=== PATIENT | female | born 1975 | race Caucasian/White ===

== ENCOUNTER 2020-03-23 09:38 | Day surgery (SDC) | payer OTHER ==
[2020-03-22 11:20] LABS: CARBON DIOXIDE,CO2 25.6 mmol/L (21.0-32.0); POTASSIUM,K 4.3 mmol/L (3.5-5.1)
[~2020-03-23 09:38] MED LIST: Fluorescein 5 ML Vial ONE; Glycopyrrolate 0.2 MG/ML SDV ONE; Lactated Ringers 1,000 ML IV SCH; Lidocaine 2% 5 ML SDV ONE; Midazolam 1 MG/ML 2 ML SDV ONE; Ondansetron 4 MG/2 ML SDV ONE; Propofol 200 MG/20 ML SDV ONE; Sodium Chloride 0.9% 10 ML SDV IV PRN; Sodium Chloride 0.9% 10 ML Syringe FLUSH PRN; Sodium Chloride 0.9% 2.5 ML Syringe FLUSH PRN; ceFAZolin 2 GM in Premix Bag 1 BAG IV ONE; fentaNYL 250 MCG/5 ML SDV ONE
[2020-03-23] MEDS ORDERED: Scopolamine 1.5 MG Transdermal Patch TRDERM PRN (10:46)
--- NOTE | 2020-03-23 10:47 | PCM.PREANE ---
Preanesthetic Assessment - Anesthesia/Transfusion/Family Hx Anesthesia History: Prior Anesthesia Without Reaction Family History of Anesthesia Reaction: No Transfusion History: No Prior Transfusion(s) Intubation History: Unknown - Review of Systems General: No Symptoms Pulmonary: No Symptoms Cardiovascular: No Symptoms Gastrointestinal: No Symptoms Neurological: No Symptoms Other: Reports: None - Physical Assessment NPO Status Date: 03/22/20 NPO Status Time: 23:00 Vital Signs: Last Vital Signs Temp 35.9 C L 03/23/20 09:45 Pulse 91 03/23/20 09:45 Resp 16 03/23/20 09:45 BP 151/89 H 03/23/20 09:45 Pulse Ox 97 03/23/20 09:45 Height: 5 ft 4 in Weight: 92.079 kg ASA Class: 2 Mental Status: Alert & Oriented x3 Airway Class: Mallampati = 2 Dentition: Reports: Normal Dentition Thyro-Mental Finger Breadths: 3 Mouth Opening Finger Breadths: 2 (small mouth) ROM/Head Extension: Full Lungs: Clear to Auscultation, Normal Respiratory Effort Cardiovascular: Regular Rate, Regular Rhythm - Lab Values: Laboratory Last Values WBC 4.66 K/uL (4.0-11.0) 03/22/20 10:33 RBC 4.81 M/uL (4.30-5.90) 03/22/20 10:33 Hgb 12.9 g/dL (12.0-16.0) 03/22/20 10:33 Hct 39.6 % (36.0-46.0) 03/22/20 10:33 MCV 82.3 fL (80.0-98.0) 03/22/20 10:33 MCH 26.8 pg (27.0-32.0) L 03/22/20 10:33 MCHC 32.6 g/dL (31.0-37.0) 03/22/20 10:33 RDW Std Deviation 46.1 fl (28.0-62.0) 03/22/20 10:33 RDW Coeff of Abdelrahman 15 % (11.0-15.0) 03/22/20 10:33 Plt Count 305 K/uL (150-400) 03/22/20 10:33 MPV 10.50 fL (7.40-12.00) 03/22/20 10:33 Nucleated RBC % 0.0 /100WBC 03/22/20 10:33 Nucleated RBCs # 0 K/uL 03/22/20 10:33 Sodium 137 mmol/L (136-145) 03/22/20 10:33 Potassium 4.3 mmol/L (3.5-5.1) 03/22/20 10:33 Chloride 102 mmol/L (98-107) 03/22/20 10:33 Carbon Dioxide 25.6 mmol/L (21.0-32.0) 03/22/20 10:33 BUN 13 mg/dL (7.0-18.0) 03/22/20 10:33 Creatinine 1.0 mg/dL (0.6-1.0) 03/22/20 10:33 Est Cr Clr Drug Dosing 61.35 mL/min 03/22/20 10:33 Estimated GFR (MDRD) 60.0 ml/min 03/22/20 10:33 Glucose 110 mg/dL (74-106) H 03/22/20 10:33 Calcium 8.6 mg/dL (8.5-10.1) 03/22/20 10:33 HCG, Qual NEGATIVE (NEG) 03/22/20 10:33 Blood Type A POSITIVE 03/22/20 10:33 Antibody Screen NEGATIVE 03/22/20 10:33 - Allergies Allergies/Adverse Reactions: Allergies Allergy/AdvReac Type Severity Reaction Status Date / Time No Known Allergies Allergy Verified 03/17/20 12:16 - Blood Blood Available: No - Anesthesia Plan Pre-Op Medication Ordered: None - Acknowledgements Anesthesia Type Planned: General Anesthesia Pt an Appropriate Candidate for the Planned Anesthesia: Yes Alternatives and Risks of Anesthesia Discussed w Pt/Guardian: Yes Pt/Guardian Understands and Agrees with Anesthesia Plan: Yes PreAnesthesia Questionnaire HEENT History: Reports: Other (See Below) Other HEENT History: wears glasses Cardiovascular History: Reports: None Respiratory History: Reports: None Gastrointestinal History: Reports: None Genitourinary History: Reports: None [employer] 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: Musculoskeletal History: Reports: None Neurological History: Reports: None Psychiatric History: Reports: Depression Other Psychiatric History: depression in the past Endocrine/Metabolic History: Reports: Obesity/BMI 30+ (BMI 34.8) Hematologic History: Reports: None Immunologic History: Reports: None Oncologic (Cancer) History: Reports: None Dermatologic History: Reports: Other (See Below) Other Dermatologic History: dry skin - Past Surgical History Head Surgeries/Procedures: Reports: None HEENT Surgical History: Reports: None Cardiovascular Surgical History: Reports: None Respiratory Surgical History: Reports: None GI Surgical History: Reports: None Female Surgical History: Reports: Other (See Below) Other Female Surgeries/Procedures: laparoscopy with ovarian cystectomy Endocrine Surgical History: Reports: None Neurological Surgical History: Reports: None Musculoskeletal Surgical History: Reports: None Oncologic Surgical History: Reports: None Dermatological Surgical History: Reports: None - SUBSTANCE USE Smoking Status *Q: Never Smoker - HOME MEDS Home Medications: Home Meds Ibuprofen [Advil] 1 tab PO ASDIRECTED PRN 03/17/20 [History] - CURRENT (IN HOUSE) MEDS Current Meds: Current Medications Lactated Ringer's (Ringers, Lactated) 1,000 mls @ 500 mls/hr IV BOLUS YENNIFER Last Admin: 03/23/20 10:26 Dose: 500 mls/hr Documented by: Sodium Chloride (Saline Flush) 10 ml FLUSH ASDIRECTED PRN PRN Reason: Keep Vein Open Sodium Chloride (Saline Flush) 2.5 ml FLUSH ASDIRECTED PRN PRN Reason: Keep Vein Open Sodium Chloride (Normal Saline) 10 ml IV ASDIRECTED PRN PRN Reason: IV Use Discontinued Medications Fentanyl (Sublimaze) Confirm Administered Dose 250 mcg .ROUTE .STK-MED ONE Stop: 03/23/20 07:16 Fluorescein Sodium (Ak-Fluor) Confirm Administered Dose 5 ml .ROUTE .STK-MED ONE Stop: 03/23/20 07:32 Glycopyrrolate (Robinul) Confirm Administered Dose 0.2 mg .ROUTE .STK-MED ONE Stop: 03/23/20 07:18 Cefazolin Sodium/Dextrose 2 gm (/ Premix) 50 mls @ 100 mls/hr IV ONETIME ONE Stop: 03/22/20 09:58 Lidocaine (Xylocaine-Mpf 2%) Confirm Administered Dose 5 ml .ROUTE .STK-MED ONE Stop: 03/23/20 07:18 Midazolam HCl (Versed 1 Mg/Ml) Confirm Administered Dose 2 mg .ROUTE .STK-MED ONE Stop: 03/23/20 07:16 Ondansetron HCl (Zofran) Confirm Administered Dose 4 mg .ROUTE .STK-MED ONE Stop: 03/23/20 07:18 Propofol (Diprivan 20 Ml) Confirm Administered Dose 200 mg .ROUTE .STK-MED ONE Stop: 03/23/20 07:16
[2020-03-23] MEDS ORDERED: ceFAZolin/Dextrose,Iso-Osmotic 2 GM/50 ML Duplex Bag IV ONE (11:18)
[2020-03-23] MEDS ORDERED: Succinylcholine/Sod PF 100 MG/5 ML SYRINGE IV ONE (11:21)
[2020-03-23] MEDS ORDERED: Furosemide 40 MG/4 ML VIAL ONE (12:15)
[2020-03-23] MEDS ORDERED: HYDROmorphone 2 MG/ML Syringe ONE (12:18)
[2020-03-23] MEDS ORDERED: fentaNYL 100 MCG/2 ML SDV ONE (12:26)
[2020-03-23] MEDS ORDERED: Labetalol 100 MG/20 ML MDV ONE (12:35)
[2020-03-23] MEDS ORDERED: Glycopyrrolate 0.2 MG/ML SDV ONE (13:22)
[2020-03-23] MEDS ORDERED: Acetaminophen 1,000 MG in Premix Bag 1 BAG IV PRN (13:23)
[2020-03-23] MEDS ORDERED: fentaNYL 100 MCG/2 ML SDV IVPUSH PRN (13:23)
[2020-03-23] MEDS ORDERED: Octyl 2-Cyanoacrylate 1 Tube ONE (13:23)
[2020-03-23] MEDS ORDERED: Naloxone 0.4 MG/ML Syringe ONE (13:50)
[2020-03-23] MEDS ORDERED: Ketorolac 30 MG/ML SDV IVPUSH ONE (14:06)
[2020-03-23] MEDS ORDERED: Promethazine 25 MG/ML SDV IM PRN (14:06)
[2020-03-23] MEDS ORDERED: Acetaminophen/oxyCODONE 325-5 MG Tab PO PRN (14:06)
--- NOTE | 2020-03-23 14:09 | PCM.OPNOTE ---
- General Post-Op/Procedure Note Date of Surgery/Procedure: 03/23/20 Operative Procedure(s): TLH,BSO and custoscopy Post-Op Diagnosis: Same Anesthesia Technique: General ET Tube Primary Surgeon: Favio Vargas EBL in mLs: 200 Complications: None Condition: Good Free Text/Narrative:: Intake & Output 03/22/20 03/23/20 03/23/20 22:59 06:59 14:59 Output Total 400 Balance -400
--- NOTE | 2020-03-23 15:13 | PCM.POSTAN ---
POST ANESTHESIA ASSESSMENT - MENTAL STATUS Mental Status: Somnolent - VITAL SIGNS Vital Signs: Last Vital Signs Temp 36.8 C 03/23/20 13:43 Pulse 61 03/23/20 15:03 Resp 8 L 03/23/20 15:03 BP 121/73 03/23/20 15:03 Pulse Ox 93 L 03/23/20 15:03 - RESPIRATORY Respiratory Status: Respiratory Rate WNL Free Text/Narrative:: Will monitor EtCO2 and SaO2 on floor - CARDIOVASCULAR CV Status: Pulse Rate WNL - GASTROINTESTINAL GI Status: No Symptoms - PAIN Pain Score: 0 - POST OP HYDRATION Hydration Status: Adequate & Stable (Stable. Will monitor on floor.)
--- NOTE | 2020-03-23 15:38 | OR ---
SURGEON: Favio Vargas MD DATE OF PROCEDURE: 03/23/2020 PREOPERATIVE DIAGNOSES: Menometrorrhagia, fibroid uterus. POSTOPERATIVE DIAGNOSES: Menometrorrhagia, fibroid uterus. OPERATIONS PERFORMED: Total laparoscopic hysterectomy, laparoscopic bilateral salpingo-oophorectomy, and cystoscopy. PRIMARY SURGEON: Favio Vargas MD ENERGY CONSERVATION TECHNICIAN: OR tech. ANESTHESIA: General endotracheal intubation, Mr. Roshan Thomas and Dr. Frausto. ESTIMATED BLOOD LOSS: 200 mL. COMPLICATIONS: None. FINDINGS: Uterus about 12-week size. The rest of the pelvis finding essentially is normal. INDICATIONS FOR SURGERY: Osteen referred to the admit note. PROCEDURE IN DETAIL: The patient was brought to the OR, properly identified, and prepped and draped in sterile fashion as usual. Avalos catheter placed in the bladder for drainage and then colpotomizer and uterine manipulator placed in the uterus for manipulation. The operation shifted abdominally. Stab wound done beneath the umbilicus. A Veress needle was placed in the peritoneal cavity and that cavity insufflated with 3.5 carbon dioxide and then the utilizing the Visiport technique 5 mm trocar was entered infraumbilically. Once we were in the peritoneal cavity and everything was okay, 10/12 trocar placed in the left iliac fossa and 5 mm trocar in the right iliac fossa. The operation started by identifying the landmark of the anatomy and then the superior pedicle coagulated and transected from both sides with the Navneet Harmonic scalpel and then the round ligament coagulated and transected in the same manner and then the anterior leaf of the broad ligament dissected downward medially. A uterine vessel identified and this vessel was coagulated and transected with the Navneet Harmonic scalpel. There was an area of bleeding noticed at the area near where the uterine vessel coagulated. A hemoclip was applied to this area of bleeding and the bleeding stopped. Next, the vaginal cuff was entered anteriorly with the Harmonic scalpel and the vaginal cuff incised in a circular manner detaching the cervix from its attachment to the vagina. Cervix and uterus and both tube and ovary removed vaginally and pneumoperitoneum re-established by placing vaginal pack in the vagina. Sterile irrigation of the pelvis was done and it was noted at the right side that an area near the uterine artery was oozing and that was picked individually and hemoclip applied and the bleeding stopped. Once was that accomplished, the vaginal cuff closed laparoscopically with 2-0 PDS interrupted. While we were doing that, we asked Anesthesia personnel to give the patient fluorescein. After the vaginal cuff was closed and inspection of all the pedicle making sure there was no oozing, no bleeding, the abdomen was deflated. The Avalos catheter was removed. Cystoscopy was performed. The bladder was intact. Both ureteric orifices seen with the dye coming from both of them, thus patency of both ureters verified. Satisfied with these findings, the instrument and hardware retrieved from the abdomen and the vagina and the multiple laparoscopic incisions closed in layers. The patient tolerated the procedure well, went to recovery room in stable general condition. JARRELL / KRISTIN /[id number]
[2020-03-23] MEDS: Ondansetron 4 MG/2 ML SDV IVPUSH PRN ×2 (16:01→22:10)
[2020-03-23] MEDS: Morphine 4 MG/ML Syringe IVPUSH PRN ×2 (16:33→21:09)
[2020-03-23] MEDS: Acetaminophen/oxyCODONE 325-5 MG Tab PO PRN (23:15)
[2020-03-24] MEDS: Acetaminophen/oxyCODONE 325-5 MG Tab PO PRN ×2 (04:07→08:09)
[2020-03-24 06:38] LABS: CARBON DIOXIDE,CO2 26.3 mmol/L (21.0-32.0); POTASSIUM,K 4.3 mmol/L (3.5-5.1)
--- NOTE | 2020-03-24 07:17 | PCM48HPAN ---
Post Anesthesia Note - EVALUATION WITHIN 48HRS OF ANESTHETIC Vital Signs in Normal Range: Yes Patient Participated in Evaluation: Yes Respiratory Function Stable: Yes Airway Patent: Yes Cardiovascular Function Stable: Yes Hydration Status Stable: Yes Pain Control Satisfactory: Yes (Some soreness) Nausea and Vomiting Control Satisfactory: Yes Mental Status Recovered: Yes Vital Signs: Last Vital Signs Temp 36.3 C 03/24/20 04:20 Pulse 79 03/24/20 04:20 Resp 15 03/24/20 04:20 BP 100/62 03/24/20 04:20 Pulse Ox 96 03/24/20 04:20 - COMMENTS/OBSERVATIONS Free Text/Narrative:: Doing well. No problems noted.
[2020-03-24] MEDS: Ketorolac 30 MG/ML SDV IVPUSH PRN ×2 (08:41→14:37)
--- NOTE | 2020-03-24 08:50 | PCM.SURGPN ---
- General Info Date of Service: 03/24/20 POD#: 1 Functional Status: Reports: Pain Controlled - Review of Systems General: Reports: No Symptoms HEENT: Reports: No Symptoms Pulmonary: Reports: No Symptoms Cardiovascular: Reports: No Symptoms Gastrointestinal: Reports: No Symptoms Genitourinary: Reports: No Symptoms Musculoskeletal: Reports: No Symptoms Skin: Reports: No Symptoms Neurological: Reports: No Symptoms Psychiatric: Reports: No Symptoms - Patient Data Vitals - Most Recent: Last Vital Signs Temp 36.4 C 03/24/20 08:00 Pulse 92 03/24/20 08:00 Resp 16 03/24/20 08:00 BP 115/62 03/24/20 08:00 Pulse Ox 95 03/24/20 08:00 Weight - Most Recent: 92.079 kg I&O - Last 24 Hours: Intake & Output 03/23/20 03/24/20 03/24/20 22:59 06:59 14:59 Intake Total 2560 350 Output Total 0 460 Balance 2560 -110 Lab Results Last 24 Hrs: Laboratory Results - last 24 hr 03/24/20 03/24/20 Range/Units 06:00 06:00 WBC 11.76 H (4.0-11.0) K/uL RBC 4.17 L (4.30-5.90) M/uL Hgb 10.9 L (12.0-16.0) g/dL Hct 34.2 L (36.0-46.0) % MCV 82.0 (80.0-98.0) fL MCH 26.1 L (27.0-32.0) pg MCHC 31.9 (31.0-37.0) g/dL RDW Std Deviation 45.9 (28.0-62.0) fl RDW Coeff of Abdelrahman 15 (11.0-15.0) % Plt Count 260 (150-400) K/uL MPV 10.30 (7.40-12.00) fL Neut % (Auto) 85.8 H (48.0-80.0) % Lymph % (Auto) 7.6 L (16.0-40.0) % [place] % (Auto) 6.6 (0.0-15.0) % Eos % (Auto) 0.0 (0.0-7.0) % Baso % (Auto) 0.0 (0.0-1.5) % Neut # (Auto) 10.1 H (1.4-5.7) K/uL Lymph # (Auto) 0.9 (0.6-2.4) K/uL [place] # (Auto) 0.8 (0.0-0.8) K/uL Eos # (Auto) 0.0 (0.0-0.7) K/uL Baso # (Auto) 0.0 (0.0-0.1) K/uL Nucleated RBC % 0.0 /100WBC Nucleated RBCs # 0 K/uL Sodium 138 (136-145) mmol/L Potassium 4.3 (3.5-5.1) mmol/L Chloride 103 (98-107) mmol/L Carbon Dioxide 26.3 (21.0-32.0) mmol/L BUN 13 (7.0-18.0) mg/dL Creatinine 1.1 H (0.6-1.0) mg/dL Est Cr Clr Drug Dosing 55.77 mL/min Estimated GFR (MDRD) 53.7 ml/min Glucose 147 H (74-106) mg/dL Calcium 8.1 L (8.5-10.1) mg/dL Med Orders - Current: Current Medications Lactated Ringer's (Ringers, Lactated) 1,000 mls @ 500 mls/hr IV BOLUS YENNIFER Last Admin: 03/23/20 10:26 Dose: 500 mls/hr Documented by: Ketorolac Tromethamine (Toradol) 30 mg IVPUSH Q6H PRN PRN Reason: Pain (severe 7-10) Stop: 03/28/20 14:06 Last Admin: 03/24/20 08:41 Dose: 30 mg Documented by: Morphine Sulfate (Morphine) 4 mg IVPUSH Q2H PRN PRN Reason: Pain (severe 7-10) Last Admin: 03/23/20 21:09 Dose: 4 mg Documented by: Ondansetron HCl (Zofran) 4 mg IVPUSH Q6H PRN PRN Reason: Nausea/Vomiting Last Admin: 03/23/20 22:10 Dose: 4 mg Documented by: Oxycodone/Acetaminophen (Percocet 325-5 Mg) 1 tab PO Q4H PRN PRN Reason: Pain (moderate 4-6) Oxycodone/Acetaminophen (Percocet 325-5 Mg) 2 tab PO Q4H PRN PRN Reason: Pain (moderate 4-6) Last Admin: 03/24/20 08:09 Dose: 2 tab Documented by: Promethazine HCl (Phenergan) 25 mg IM Q6H PRN PRN Reason: Nausea/Vomiting Scopolamine (Transderm-Scop) 1.5 mg TRDERM Q72H PRN PRN Reason: Nausea Last Admin: 03/23/20 10:52 Dose: 1.5 mg Documented by: Sodium Chloride (Saline Flush) 10 ml FLUSH ASDIRECTED PRN PRN Reason: Keep Vein Open Sodium Chloride (Saline Flush) 2.5 ml FLUSH ASDIRECTED PRN PRN Reason: Keep Vein Open Sodium Chloride (Normal Saline) 10 ml IV ASDIRECTED PRN PRN Reason: IV Use Discontinued Medications Cefazolin Sodium/Dextrose (Ancef) Confirm Administered Dose 2 gm IV .STK-MED ONE Stop: 03/23/20 11:19 Fentanyl (Sublimaze) Confirm Administered Dose 250 mcg .ROUTE .STK-MED ONE Stop: 03/23/20 07:16 Fentanyl (Sublimaze) Confirm Administered Dose 100 mcg .ROUTE .STK-MED ONE Stop: 03/23/20 12:27 Fentanyl (Sublimaze) 50 mcg IVPUSH Q5M PRN PRN Reason: Pain Fluorescein Sodium (Ak-Fluor) Confirm Administered Dose 5 ml .ROUTE .STK-MED ONE Stop: 03/23/20 07:32 Furosemide (Lasix) Confirm Administered Dose 40 mg .ROUTE .STK-MED ONE Stop: 03/23/20 12:16 Glycopyrrolate (Robinul) Confirm Administered Dose 0.2 mg .ROUTE .STK-MED ONE Stop: 03/23/20 07:18 Glycopyrrolate (Robinul) Confirm Administered Dose 0.6 mg .ROUTE .STK-MED ONE Stop: 03/23/20 13:23 Hydromorphone HCl (Dilaudid) Confirm Administered Dose 2 mg .ROUTE .STK-MED ONE Stop: 03/23/20 12:19 Cefazolin Sodium/Dextrose 2 gm (/ Premix) 50 mls @ 100 mls/hr IV ONETIME ONE Stop: 03/22/20 09:58 Last Admin: 03/23/20 22:41 Dose: Not Given Documented by: Acetaminophen 1,000 mg/ Premix 100 mls @ 400 mls/hr IV Q6H PRN PRN Reason: Pain Ketorolac Tromethamine (Toradol) 30 mg IVPUSH ONETIME ONE Stop: 03/23/20 14:07 Last Admin: 03/23/20 16:25 Dose: 30 mg Documented by: Labetalol HCl (Normodyne) Confirm Administered Dose 100 mg .ROUTE .STK-MED ONE Stop: 03/23/20 12:36 Lidocaine (Xylocaine-Mpf 2%) Confirm Administered Dose 5 ml .ROUTE .STK-MED ONE Stop: 03/23/20 07:18 Midazolam HCl (Versed 1 Mg/Ml) Confirm Administered Dose 2 mg .ROUTE .STK-MED ONE Stop: 03/23/20 07:16 Naloxone HCl (Narcan) Confirm Administered Dose 0.4 mg .ROUTE .STK-MED ONE Stop: 03/23/20 13:51 Octyl Cyanoacrylate (Dermabond Advance) Confirm Administered Dose 1 applic .ROUTE .STK-MED ONE Stop: 03/23/20 13:24 Ondansetron HCl (Zofran) Confirm Administered Dose 4 mg .ROUTE .STK-MED ONE Stop: 03/23/20 07:18 Propofol (Diprivan 20 Ml) Confirm Administered Dose 200 mg .ROUTE .STK-MED ONE Stop: 03/23/20 07:16 Vecuronium [place] (Vecuronium) Confirm Administered Dose 10 mg .ROUTE .STK-MED ONE Stop: 03/23/20 11:23 - Exam Wound/Incisions: Healing Well General: Alert, Oriented HEENT: Pupils Equal Neck: Supple Lungs: Clear to Auscultation, Normal Respiratory Effort Cardiovascular: Regular Rate, Regular Rhythm GI/Abdominal Exam: Normal Bowel Sounds, Soft, Non-Tender, No Organomegaly, No Distention, No Abnormal Bruit, No Mass, Pelvis Stable Extremities: Normal Inspection, Normal Range of Motion, Non-Tender, No Pedal Edema, Normal Capillary Refill Skin: Warm, Dry, Intact Neurological: No New Focal Deficit Psy/Mental Status: Alert, Normal Affect, Normal Mood Sepsis Event Note - Evaluation Sepsis Screening Result: No Definite Risk - Focused Exam Vital Signs: Vital Signs Temp Pulse Resp BP Pulse Ox Pulse Ox 03/24/20 08:00 36.4 C 92 16 115/62 95 03/24/20 04:20 36.3 C 79 15 100/62 96 03/24/20 04:00 98 03/24/20 00:00 36.0 C L 78 14 115/68 96 97 Date Exam was Performed: 03/24/20 Time Exam was Performed: 08:46 - Problem List Review Problem List Initiated/Reviewed/Updated: Yes - My Orders Last 24 Hours: Active Orders 24 hr Category Date Time Status Patient Status [ADT] Routine ADT 03/23/20 14:06 Active Antiembolic Devices [RC] Q12H Care 03/23/20 14:07 Active ETCO2 [RT End Tidal CO2 Monitoring] [RC] ASDIRECTED Care 03/23/20 14:57 Active Notify Provider Vital Signs [RC] ASDIRECTED Care 03/23/20 14:06 Active Overnight Pulse Oximetry [RC] Click to Edit Care 03/23/20 14:57 Active Oxygen Therapy [RC] Q4H Care 03/23/20 14:06 Active RT Incentive Spirometry [RC] Q2HWA Care 03/23/20 14:06 Active Up With Assistance [RC] Q12H Care 03/23/20 14:06 Active Up ad [place] [RC] PER UNIT ROUTINE Care 03/23/20 14:06 Active Vital Signs [RC] PER UNIT ROUTINE Care 03/23/20 14:06 Active Regular Diet [DIET] Diet 03/23/20 Dinner Active Acetaminophen/oxyCODONE [Percocet 325-5 MG] Med 03/23/20 14:06 Active 1 tab PO Q4H PRN Acetaminophen/oxyCODONE [Percocet 325-5 MG] Med 03/23/20 14:06 Active 2 tab PO Q4H PRN Ketorolac [Toradol] Med 03/23/20 14:06 Active 30 mg IVPUSH Q6H PRN Morphine Med 03/23/20 14:06 Active 4 mg IVPUSH Q2H PRN Ondansetron [Zofran] Med 03/23/20 14:06 Active 4 mg IVPUSH Q6H PRN Promethazine [Phenergan] Med 03/23/20 14:06 Active 25 mg IM Q6H PRN Scopolamine [Transderm-Scop] Med 03/23/20 10:46 Active 1.5 mg TRDERM Q72H PRN Peripheral IV Discontinue [OM.PC] Routine Oth 03/23/20 14:06 Ordered Pulse Oximetry Continuous Monitoring [OM.PC] Routine Oth 03/23/20 14:57 Ordered Sequential Compression Device [OM.PC] Per Unit Routine Oth 03/23/20 14:06 Ordered Resuscitation Status Routine Resus Stat 03/23/20 14:06 Ordered Medication Orders Lactated Ringer's (Ringers, Lactated) 1,000 mls @ 500 mls/hr IV BOLUS YENNIFER Last Admin: 03/23/20 10:26 Dose: 500 mls/hr Documented by: MAYO Ketorolac Tromethamine (Toradol) 30 mg IVPUSH Q6H PRN PRN Reason: Pain (severe 7-10) Stop: 03/28/20 14:06 Last Admin: 03/24/20 08:41 Dose: 30 mg Documented by: GREGORIA Morphine Sulfate (Morphine) 4 mg IVPUSH Q2H PRN PRN Reason: Pain (severe 7-10) Last Admin: 03/23/20 21:09 Dose: 4 mg Documented by: Admin: 03/23/20 16:33 Dose: 4 mg Documented by: NATTY Ondansetron HCl (Zofran) 4 mg IVPUSH Q6H PRN PRN Reason: Nausea/Vomiting Last Admin: 03/23/20 22:10 Dose: 4 mg Documented by: Admin: 03/23/20 16:01 Dose: 4 mg Documented by: NATTY Oxycodone/Acetaminophen (Percocet 325-5 Mg) 1 tab PO Q4H PRN PRN Reason: Pain (moderate 4-6) Oxycodone/Acetaminophen (Percocet 325-5 Mg) 2 tab PO Q4H PRN PRN Reason: Pain (moderate 4-6) Last Admin: 03/24/20 08:09 Dose: 2 tab Documented by: ALIRIO Cosigned by: YASMINE Admin: 03/24/20 04:07 Dose: 2 tab Documented by: Admin: 03/23/20 23:15 Dose: 2 tab Documented by: ZABRINA Promethazine HCl (Phenergan) 25 mg IM Q6H PRN PRN Reason: Nausea/Vomiting Scopolamine (Transderm-Scop) 1.5 mg TRDERM Q72H PRN PRN Reason: Nausea Last Admin: 03/23/20 10:52 Dose: 1.5 mg Documented by: MAYO Sodium Chloride (Saline Flush) 10 ml FLUSH ASDIRECTED PRN PRN Reason: Keep Vein Open Sodium Chloride (Saline Flush) 2.5 ml FLUSH ASDIRECTED PRN PRN Reason: Keep Vein Open Sodium Chloride (Normal Saline) 10 ml IV ASDIRECTED PRN PRN Reason: IV Use - Assessment Assessment (Free Text/Narrative):: Status post total laparoscopic hysterectomy with laparoscopic bilateral salpingo-oophorectomy and cystoscopy yesterday the patient is today is doing well her hematocrit stable there is no vaginal bleeding she is on regular diet tolerated very well she is voiding without any problem and she is moving around the bed. The patient advised to attempt to take a shower with the help of her nursing staff. - Plan Plan (Free Text/Narrative):: The patient will be discharge home today post hysterectomy instruction is given to the patient instruction how to take care of her laparoscopic incision is also given to her. There is no restriction on her diet prescription for Narco 5/325 for postoperative pain is given to her to the patient is already have an appointment to see me in the office in one week
== END 2020-03-24 14:47 | disposition home or self-care (01) ==
LOC: MW.SDS 09:38 → MW.MS 14:14 → MW.SDS 03-24 14:47
PROVIDERS: ATTEND Obstetrics & Gynecology
DX: N72 Inflammatory disease of cervix uteri (principal); N85.2 Hypertrophy of uterus; N83.8 Other noninflammatory disorders of ovary, fallopian tube and broad ligament; N83.02 Follicular cyst of left ovary; N83.01 Follicular cyst of right ovary; E66.9 Obesity, unspecified; E61.1 Iron deficiency; Z68.34 Body mass index [BMI] 34.0-34.9, adult
CPT/HCPCS: 36415; 58571; 80048; 82962; 84703; 85025; 85027; 86850; 86900; 86901; A9270; J0690; J1170; J1885; J1940; J2001; J2250; J2270; J2405; J2704; J3010; J3490; J7120; 88307; J0330

== ENCOUNTER 2022-12-12 06:37 | Day surgery (SDC) | payer BC ==
[~2022-12-12 06:37] MED LIST changes: -Fluorescein 5 ML Vial ONE; -Glycopyrrolate 0.2 MG/ML SDV ONE; -Lidocaine 2% 5 ML SDV ONE; -Midazolam 1 MG/ML 2 ML SDV ONE; -Ondansetron 4 MG/2 ML SDV ONE; -Propofol 200 MG/20 ML SDV ONE; -Sodium Chloride 0.9% 10 ML SDV IV PRN; +Sodium Chloride 0.9% 20 ML SDV IV PRN; -ceFAZolin 2 GM in Premix Bag 1 BAG IV ONE; -fentaNYL 250 MCG/5 ML SDV ONE
[2022-12-12] MEDS ORDERED: Propofol 200 MG/20 ML SDV ONE (07:28)
== END 2022-12-12 09:15 | disposition home or self-care (01) ==
LOC: MW.SDS 06:37
PROVIDERS: ATTEND Surgery
DX: Z12.11 Encounter for screening for malignant neoplasm of colon (principal); D12.2 Benign neoplasm of ascending colon; K57.30 Diverticulosis of large intestine without perforation or abscess without bleeding; Z80.0 Family history of malignant neoplasm of digestive organs; Z90.710 Acquired absence of both cervix and uterus; Z79.84 Long term (current) use of oral hypoglycemic drugs; Z79.899 Other long term (current) drug therapy; Z91.013 Allergy to seafood; Z91.040 Latex allergy status
CPT/HCPCS: 45380; 82947; J2704; J7120; 00812

== ENCOUNTER 2023-10-09 07:28 | Day surgery (SDC) | payer BC ==
[2023-10-09] MEDS ORDERED: propofoL 50 ML ONE (08:28)
[2023-10-09] MEDS ORDERED: Dexamethasone 4 MG/ML 5 ML MDV ONE (08:40)
== END 2023-10-09 09:40 | disposition home or self-care (01) ==
LOC: MW.SDS 07:28
PROVIDERS: ATTEND Surgery
DX: K29.50 Unspecified chronic gastritis without bleeding (principal); B96.81 Helicobacter pylori [H. pylori] as the cause of diseases classified elsewhere; K21.9 Gastro-esophageal reflux disease without esophagitis; E11.9 Type 2 diabetes mellitus without complications; E66.9 Obesity, unspecified; Z68.35 Body mass index [BMI] 35.0-35.9, adult; Z79.84 Long term (current) use of oral hypoglycemic drugs; Z79.85 Long-term (current) use of injectable non-insulin antidiabetic drugs; Z79.899 Other long term (current) drug therapy; Z91.013 Allergy to seafood; Z91.040 Latex allergy status
CPT/HCPCS: 43239; J1100; J2704; J7120; 00731

== ENCOUNTER 2024-07-23 15:34 | Inpatient (IN) | payer BC ==
[2024-07-23] MEDS ORDERED: 50% Dextrose in Water 50 ML Syringe IVPUSH PRN (16:09)
[2024-07-23] MEDS ORDERED: Glucagon,Human Recombinant 1 MG Vial IM PRN (16:09)
[2024-07-23] MEDS ORDERED: Acetaminophen 500 MG Tab PO SCH (16:15)
[2024-07-23] MEDS ORDERED: diphenhydrAMINE 50 MG Cap PO PRN (16:15)
[2024-07-23] MEDS: Sodium Chloride 0.9% 1,000 ML IV ONE (16:48)
[2024-07-23] MEDS: Pantoprazole 40 MG Tab.CR PO SCH (16:52)
[2024-07-23] MEDS: diphenhydrAMINE 25 MG Cap PO SCH (16:52)
[2024-07-23 16:55] LABS: BASOPHILS ABSOLUTE AUTO 0.05 K/uL (0.00-0.20); BASOPHILS PERCENT AUTO 0.7 % (0.0-1.0); EOSINOPHILS ABSOLUTE AUTO 0.19 K/uL (0.00-0.45); EOSINOPHILS PERCENT AUTO 2.8 % (0.0-6.0); HEMOGLOBIN 15.2 g/dL (12.0-16.0); IMMATURE GRAN ABSOLUTE AUTO 0.01 K/uL (0.00-0.05); IMMATURE GRAN PERCENT AUTO 0.1 % (0.0-0.4); LYMPHOCYTES ABSOLUTE AUTO 2.01 K/uL (1.00-4.80); LYMPHOCYTES PERCENT AUTO 29.7 % (24.0-44.0); MEAN CORPUSCULAR HEMOGLOBIN 28.6 pg (28.0-32.0); MEAN CORPUSCULAR HGB CONC 34.5 g/dL (32.0-36.0); MEAN CORPUSCULAR VOLUME 82.7 fL (83.0-99.0); MEAN PLATELET VOLUME 10.3 fL (9.4-12.3); MONOCYTES ABSOLUTE AUTO 0.46 K/uL (0.00-0.80); MONOCYTES PERCENT AUTO 6.8 % (0.0-8.0); NEUTROPHILS ABSOLUTE AUTO 4.04 K/uL (1.80-7.70); NEUTROPHILS PERCENT AUTO 59.9 % (41.0-71.0); PLATELET COUNT,PLT 189 K/uL (150-400); RED BLOOD CELL COUNT 5.32 M/uL (4.10-5.30); WHITE BLOOD CELL COUNT,WBC 6.76 K/uL (3.9-11.3)
[2024-07-23] MEDS: Acetaminophen 325 MG Tab PO SCH (17:02)
[2024-07-23] MEDS: Insulin Aspart 100 Units/ML 3 ML Pen SUBCUT SCH (17:03)
[2024-07-23] MEDS: Enoxaparin 40 MG/0.4 ML Syringe SUBCUT SCH (17:03)
[2024-07-23 17:23] LABS: A/G RATIO 1.7 (0.9-1.6); ALBUMIN 4.2 g/dL (3.4-5.0); BILIRUBIN TOTAL 0.7 mg/dL (0.2-1.0); CALCIUM 9.4 mg/dL (8.5-10.1); CARBON DIOXIDE,CO2 26.6 mmol/L (21.0-32.0); EST CRCL DRUG DOSING (CG) 58.76 mL/min; POTASSIUM,K 3.9 mmol/L (3.5-5.1); PROTEIN TOTAL,TP 6.7 g/dL (6.4-8.2)
[2024-07-23 17:39] LABS: CORONAVIRUS COVID-19 NAA NEGATIVE (NEGATIVE); INFLUENZA A NAA NEGATIVE (NEGATIVE); INFLUENZA B NAA NEGATIVE (NEGATIVE); RESPIRATORY SYNCYTIAL VIR NAA NEGATIVE (NEGATIVE)
[2024-07-23] MEDS: IMMUNE GLOBULIN GAMMA IV SCH (18:44)
[2024-07-23 20:02] LABS: APPEARANCE,URINE CLEAR; BILIRUBIN,URINE NEGATIVE (NEGATIVE); COLOR,URINE YELLOW; GLUCOSE,URINE NEGATIVE (NEGATIVE); KETONES,URINE NEGATIVE (NEGATIVE); LEUKOCYTE ESTERASE,URINE NEGATIVE (NEGATIVE); NITRITE,URINE NEGATIVE (NEGATIVE); OCCULT BLOOD,URINE NEGATIVE (NEGATIVE); PROTEIN,URINE NEGATIVE (NEGATIVE); UROBILINOGEN,URINE 0.2 EU/dL (<2.0)
[2024-07-24 06:26] LABS: BASOPHILS ABSOLUTE AUTO 0.02 K/uL (0.00-0.20); BASOPHILS PERCENT AUTO 0.4 % (0.0-1.0); EOSINOPHILS ABSOLUTE AUTO 0.11 K/uL (0.00-0.45); EOSINOPHILS PERCENT AUTO 2.5 % (0.0-6.0); HEMATOCRIT 40.1 % (37.0-47.0); HEMOGLOBIN 13.7 g/dL (12.0-16.0); IMMATURE GRAN ABSOLUTE AUTO 0.01 K/uL (0.00-0.05); IMMATURE GRAN PERCENT AUTO 0.2 % (0.0-0.4); LYMPHOCYTES ABSOLUTE AUTO 0.98 K/uL (1.00-4.80); MEAN CORPUSCULAR HEMOGLOBIN 28.6 pg (28.0-32.0); MEAN CORPUSCULAR HGB CONC 34.2 g/dL (32.0-36.0); MEAN CORPUSCULAR VOLUME 83.7 fL (83.0-99.0); MONOCYTES ABSOLUTE AUTO 0.26 K/uL (0.00-0.80); MONOCYTES PERCENT AUTO 5.8 % (0.0-8.0); NEUTROPHILS ABSOLUTE AUTO 3.08 K/uL (1.80-7.70); NEUTROPHILS PERCENT AUTO 69.1 % (41.0-71.0); PLATELET COUNT,PLT 197 K/uL (150-400); RED BLOOD CELL COUNT 4.79 M/uL (4.10-5.30); WHITE BLOOD CELL COUNT,WBC 4.46 K/uL (3.9-11.3)
[2024-07-24 06:50] LABS: A/G RATIO 0.8 (0.9-1.6); ALBUMIN 3.2 g/dL (3.4-5.0); BILIRUBIN TOTAL 0.8 mg/dL (0.2-1.0); CALCIUM 8.7 mg/dL (8.5-10.1); CARBON DIOXIDE,CO2 26.7 mmol/L (21.0-32.0); CREATININE 0.9 mg/dL (0.6-1.0); EST CRCL DRUG DOSING (CG) 65.29 mL/min; MAGNESIUM 1.8 mg/dL (1.8-2.4); PHOSPHORUS 4.2 mg/dL (2.6-4.7)
[2024-07-24] MEDS: Melatonin 3 MG Tab PO PRN (23:53)
[2024-07-24] MEDS: Acetaminophen 325 MG Tab PO PRN (23:53)
[2024-07-25] MEDS: Ondansetron 4 MG/2 ML SDV IVPUSH PRN (06:57)
[2024-07-25 07:14] LABS: BASOPHILS ABSOLUTE AUTO 0.03 K/uL (0.00-0.20); BASOPHILS PERCENT AUTO 0.5 % (0.0-1.0); EOSINOPHILS ABSOLUTE AUTO 0.19 K/uL (0.00-0.45); EOSINOPHILS PERCENT AUTO 2.9 % (0.0-6.0); HEMATOCRIT 41.4 % (37.0-47.0); HEMOGLOBIN 14.2 g/dL (12.0-16.0); IMMATURE GRAN ABSOLUTE AUTO 0.01 K/uL (0.00-0.05); IMMATURE GRAN PERCENT AUTO 0.2 % (0.0-0.4); LYMPHOCYTES ABSOLUTE AUTO 1.06 K/uL (1.00-4.80); LYMPHOCYTES PERCENT AUTO 16.2 % (24.0-44.0); MEAN CORPUSCULAR HEMOGLOBIN 28.4 pg (28.0-32.0); MEAN CORPUSCULAR HGB CONC 34.3 g/dL (32.0-36.0); MEAN CORPUSCULAR VOLUME 82.8 fL (83.0-99.0); MEAN PLATELET VOLUME 10.4 fL (9.4-12.3); MONOCYTES ABSOLUTE AUTO 0.37 K/uL (0.00-0.80); MONOCYTES PERCENT AUTO 5.6 % (0.0-8.0); NEUTROPHILS ABSOLUTE AUTO 4.89 K/uL (1.80-7.70); NEUTROPHILS PERCENT AUTO 74.6 % (41.0-71.0); PLATELET COUNT,PLT 239 K/uL (150-400); WHITE BLOOD CELL COUNT,WBC 6.55 K/uL (3.9-11.3)
[2024-07-25 07:32] LABS: CALCIUM 9.1 mg/dL (8.5-10.1); CARBON DIOXIDE,CO2 27.7 mmol/L (21.0-32.0); EST CRCL DRUG DOSING (CG) 58.76 mL/min; POTASSIUM,K 3.9 mmol/L (3.5-5.1)
[2024-07-25] MEDS: Ibuprofen 600 MG Tab PO PRN (11:23)
[2024-07-25] MEDS: Sodium Chloride 0.9% 1,000 ML IV ONE (20:08)
[2024-07-25] MEDS: Bisacodyl 10 MG Supp RECTAL ONE (20:23)
[2024-07-25] MEDS ORDERED: Sodium Chloride 0.9% 1,000 ML IV SCH (21:00)
[2024-07-26] MEDS: Sennosides/Docusate Sodium 50-8.6 MG Tab PO PRN (05:23)
[2024-07-26 05:53] LABS: BASOPHILS ABSOLUTE AUTO 0.03 K/uL (0.00-0.20); BASOPHILS PERCENT AUTO 0.7 % (0.0-1.0); EOSINOPHILS ABSOLUTE AUTO 0.12 K/uL (0.00-0.45); EOSINOPHILS PERCENT AUTO 2.9 % (0.0-6.0); HEMATOCRIT 38.5 % (37.0-47.0); HEMOGLOBIN 12.9 g/dL (12.0-16.0); IMMATURE GRAN ABSOLUTE AUTO 0.01 K/uL (0.00-0.05); IMMATURE GRAN PERCENT AUTO 0.2 % (0.0-0.4); LYMPHOCYTES PERCENT AUTO 24.5 % (24.0-44.0); MEAN CORPUSCULAR HEMOGLOBIN 28.2 pg (28.0-32.0); MEAN CORPUSCULAR HGB CONC 33.5 g/dL (32.0-36.0); MEAN CORPUSCULAR VOLUME 84.2 fL (83.0-99.0); MEAN PLATELET VOLUME 10.4 fL (9.4-12.3); MONOCYTES ABSOLUTE AUTO 0.45 K/uL (0.00-0.80); NEUTROPHILS ABSOLUTE AUTO 2.47 K/uL (1.80-7.70); NEUTROPHILS PERCENT AUTO 60.7 % (41.0-71.0); PLATELET COUNT,PLT 198 K/uL (150-400); RED BLOOD CELL COUNT 4.57 M/uL (4.10-5.30); WHITE BLOOD CELL COUNT,WBC 4.08 K/uL (3.9-11.3)
[2024-07-26 06:24] LABS: A/G RATIO 0.5 (0.9-1.6); ALBUMIN 2.9 g/dL (3.4-5.0); BILIRUBIN TOTAL 0.8 mg/dL (0.2-1.0); CALCIUM 8.9 mg/dL (8.5-10.1); CARBON DIOXIDE,CO2 26.9 mmol/L (21.0-32.0); CREATININE 0.9 mg/dL (0.6-1.0); EST CRCL DRUG DOSING (CG) 65.29 mL/min; POTASSIUM,K 3.8 mmol/L (3.5-5.1); PROTEIN TOTAL,TP 8.6 g/dL (6.4-8.2)
[2024-07-26] MEDS: Pregabalin 50 MG Cap PO SCH (09:24)
[2024-07-26] MEDS: Hydrocortisone 20 MG Tab PO ONE (09:30)
[2024-07-26] MEDS: Hydrocortisone 20 MG Tab PO SCH (16:13)
[2024-07-26] MEDS: Ondansetron 4 MG Tab.DIS PO PRN (17:09)
[2024-07-26] MEDS: Polyethylene Glycol 3350 Powder 17 GM Packet PO PRN (20:58)
[2024-07-27 05:55] LABS: BASOPHILS ABSOLUTE AUTO 0.01 K/uL (0.00-0.20); BASOPHILS PERCENT AUTO 0.2 % (0.0-1.0); EOSINOPHILS ABSOLUTE AUTO 0.02 K/uL (0.00-0.45); EOSINOPHILS PERCENT AUTO 0.3 % (0.0-6.0); HEMOGLOBIN 12.2 g/dL (12.0-16.0); IMMATURE GRAN ABSOLUTE AUTO 0.02 K/uL (0.00-0.05); IMMATURE GRAN PERCENT AUTO 0.3 % (0.0-0.4); LYMPHOCYTES ABSOLUTE AUTO 1.26 K/uL (1.00-4.80); LYMPHOCYTES PERCENT AUTO 20.6 % (24.0-44.0); MEAN CORPUSCULAR HEMOGLOBIN 28.3 pg (28.0-32.0); MEAN CORPUSCULAR HGB CONC 33.9 g/dL (32.0-36.0); MEAN CORPUSCULAR VOLUME 83.5 fL (83.0-99.0); MONOCYTES ABSOLUTE AUTO 0.52 K/uL (0.00-0.80); MONOCYTES PERCENT AUTO 8.5 % (0.0-8.0); NEUTROPHILS ABSOLUTE AUTO 4.29 K/uL (1.80-7.70); NEUTROPHILS PERCENT AUTO 70.1 % (41.0-71.0); PLATELET COUNT,PLT 170 K/uL (150-400); RED BLOOD CELL COUNT 4.31 M/uL (4.10-5.30)
[2024-07-27 06:28] LABS: A/G RATIO 0.5 (0.9-1.6); ALBUMIN 2.7 g/dL (3.4-5.0); BILIRUBIN TOTAL 0.7 mg/dL (0.2-1.0); CALCIUM 8.6 mg/dL (8.5-10.1); CREATININE 0.9 mg/dL (0.6-1.0); EST CRCL DRUG DOSING (CG) 65.29 mL/min; POTASSIUM,K 3.6 mmol/L (3.5-5.1); PROTEIN TOTAL,TP 8.7 g/dL (6.4-8.2)
[2024-07-28 12:07] LABS: ALBUMIN 4.17 g/dL (3.75-5.01); ALPHA 1 GLOBULIN 0.25 g/dL (0.19-0.46); ALPHA 2 GLOBULIN 0.64 g/dL (0.48-1.05); GAMMA 0.83 g/dL (0.62-1.51); TOTAL PROTEIN, SERUM 6.7 g/dL (6.3-8.2)
== END 2024-07-27 12:20 | disposition home or self-care (01) | DRG 49 ==
LOC: MW.MS 15:34
PROVIDERS: ADMIT Internal Medicine; ATTEND Internal Medicine
DX: G61.0 Guillain-Barre syndrome (principal); E66.9 Obesity, unspecified; M19.90 Unspecified osteoarthritis, unspecified site; Z68.29 Body mass index [BMI] 29.0-29.9, adult; E11.9 Type 2 diabetes mellitus without complications; G47.00 Insomnia, unspecified; Z97.3 Presence of spectacles and contact lenses; Z79.52 Long term (current) use of systemic steroids; Z79.84 Long term (current) use of oral hypoglycemic drugs; Z91.040 Latex allergy status; Z91.013 Allergy to seafood; Z79.899 Other long term (current) drug therapy; Z87.442 Personal history of urinary calculi; Z90.710 Acquired absence of both cervix and uterus; Z90.721 Acquired absence of ovaries, unilateral; Z98.890 Other specified postprocedural states
CPT/HCPCS: 0241U; 36415; 80048; 80053; 81003; 82947; 83735; 84100; 84155; 84165; 85025; 86880; 97116-GP; 97162-GP; 97530-GP; 99223; 99232; 99239; A9270-GY; J1459; J1650; J2405; J7030

== ENCOUNTER 2025-03-18 10:14 | Emergency (ER) | payer BC ==
[2025-03-18] MEDS ORDERED: Sodium Chloride 0.9% 20 ML SDV IV PRN (11:12)
[2025-03-18] MEDS ORDERED: Sodium Chloride 0.9% 2.5 ML Syringe FLUSH PRN (11:12)
[2025-03-18] MEDS ORDERED: Sodium Chloride 0.9% 10 ML Syringe FLUSH PRN (11:12)
[2025-03-18 11:21] LABS: APPEARANCE,URINE CLEAR; BILIRUBIN,URINE NEGATIVE (NEGATIVE); COLOR,URINE YELLOW; GLUCOSE,URINE NEGATIVE (NEGATIVE); KETONES,URINE NEGATIVE (NEGATIVE); LEUKOCYTE ESTERASE,URINE NEGATIVE (NEGATIVE); NITRITE,URINE NEGATIVE (NEGATIVE); OCCULT BLOOD,URINE NEGATIVE (NEGATIVE); PH,URINE 5.5 (5.0-8.0); PROTEIN,URINE NEGATIVE (NEGATIVE); UROBILINOGEN,URINE 0.2 EU/dL (<2.0)
[2025-03-18 11:38] LABS: BASOPHILS ABSOLUTE AUTO 0.03 K/uL (0.00-0.20); BASOPHILS PERCENT AUTO 0.5 % (0.0-1.0); EOSINOPHILS ABSOLUTE AUTO 0.03 K/uL (0.00-0.45); EOSINOPHILS PERCENT AUTO 0.5 % (0.0-6.0); HEMATOCRIT 38.8 % (37.0-47.0); HEMOGLOBIN 13.3 g/dL (12.0-16.0); IMMATURE GRAN ABSOLUTE AUTO 0.01 K/uL (0.00-0.05); IMMATURE GRAN PERCENT AUTO 0.2 % (0.0-0.4); LYMPHOCYTES ABSOLUTE AUTO 0.62 K/uL (1.00-4.80); LYMPHOCYTES PERCENT AUTO 9.6 % (24.0-44.0); MEAN CORPUSCULAR HEMOGLOBIN 29.2 pg (28.0-32.0); MEAN CORPUSCULAR HGB CONC 34.3 g/dL (32.0-36.0); MEAN CORPUSCULAR VOLUME 85.1 fL (83.0-99.0); MEAN PLATELET VOLUME 10.2 fL (9.4-12.3); MONOCYTES ABSOLUTE AUTO 0.31 K/uL (0.00-0.80); MONOCYTES PERCENT AUTO 4.8 % (0.0-8.0); NEUTROPHILS ABSOLUTE AUTO 5.48 K/uL (1.80-7.70); NEUTROPHILS PERCENT AUTO 84.4 % (41.0-71.0); PLATELET COUNT,PLT 189 K/uL (150-400); RED BLOOD CELL COUNT 4.56 M/uL (4.10-5.30); WHITE BLOOD CELL COUNT,WBC 6.48 K/uL (3.9-11.3)
[2025-03-18] MEDS: Aspirin 81 MG Tab.Chew PO ONE (11:41)
[2025-03-18 12:18] LABS: A/G RATIO 0.5 (0.9-1.6); BILIRUBIN TOTAL 1.3 mg/dL (0.2-1.0); CALCIUM 8.4 mg/dL (8.5-10.1); CARBON DIOXIDE,CO2 25.3 mmol/L (21.0-32.0); EST CRCL DRUG DOSING (CG) 58.12 mL/min; MAGNESIUM 1.7 mg/dL (1.8-2.4); PROTEIN TOTAL,TP 8.7 g/dL (6.4-8.2)
[2025-03-18 12:21] LABS: LACTIC ACID 1.8 mmol/L (0.4-2.0)
[2025-03-18] MEDS: Magnesium Sulfate 2 GM/50 mL 2 GM in Premix Bag 1 BAG IV ONE (12:50)
[2025-03-18] MEDS: Iopamidol 755 MG/ML 500 ML Multipack Bottle IVPUSH STA (13:20)
== END 2025-03-18 16:09 | disposition home or self-care (01) ==
LOC: MW.ED 10:14
DX: I10 Essential (primary) hypertension (principal); R10.9 Unspecified abdominal pain; R74.01 Elevation of levels of liver transaminase levels; E66.9 Obesity, unspecified; Z91.013 Allergy to seafood; Z91.040 Latex allergy status; Z90.710 Acquired absence of both cervix and uterus; Z68.31 Body mass index [BMI] 31.0-31.9, adult; Z79.84 Long term (current) use of oral hypoglycemic drugs; Z79.899 Other long term (current) drug therapy
CPT/HCPCS: 36415; 71046; 71046-26; 74177; 74177-26; 76705; 76705-26; 80053; 80061; 81003; 82306; 83036; 83605; 83690; 83735; 84443; 84484; 85025; 85379; 93005; 96365; 99283; 99284-25; A9270-GY; J3475; Q9967